=== PATIENT | female | born 1965 | race African-American/Black ===

== ENCOUNTER 2016-12-20 15:28 | Emergency (ER) | payer BC, OTHER ==
[2016-12-20] MEDS ORDERED: KETOROLAC 30 MG/ML 1 ML VIAL IVP STA (16:16)
[2016-12-20] MEDS ORDERED: SODIUM CHLORIDE 0.9% 500 ML IV STA (16:16)
[2016-12-20] MEDS ORDERED: SODIUM CHLORIDE 0.9% 1,000 ML IV STA (16:16)
[2016-12-20] MEDS ORDERED: KETOROLAC 30 MG/ML 1 ML VIAL IM STA (16:38)
--- NOTE | 2016-12-20 16:53 | ED ---
Abdominal Pain HPI - General Chief Complaint: Abdominal Pain Stated Complaint: Abd.pain Time Seen by Provider: 12/20/16 16:01 Source: patient Mode of arrival: ambulatory Limitations: no limitations - History of Present Illness Initial Comments: This 51-year-old Afro[place] female presents with a complaint of some abdominal pain. She states that it is in her right lateral abdomen as well as in her suprapubic region. She states that she's had this for approximately 6 weeks. She was seen in the emergency department approximately 2 weeks ago and diagnosed with a right proximal 7 mm ureteral stone. She was prescribed some pain medications as well as some Flomax. She states that she never took the Flomax but did take the pain medications with some relief. She states that the pain has been persistent. She further relates that she had a hysterectomy this past summer and has had some intermittent suprapubic pain ever since. She does relate occasional hematuria and complains of some pain in her suprapubic region when she urinates but no definite dysuria or frequency. She denies any fevers or chills. She also was diagnosed with some gallstones on last visit. She has not followed up with the urologist as of yet. She also complains of a slight pruritic rash to her chest. She denies any other complaints or modifying factors. - Related Data Home Medications Medication Instructions Recorded Confirmed Atenolol/Chlorthalidone 1 tab PO DAILY 12/05/16 12/20/16 [Atenolol-Chlorthalidone 50-25] Ibuprofen [Motrin] 800 mg PO Q8H PRN 12/05/16 12/20/16 Previous Rx's Medication Instructions Recorded HYDROcodone/APAP 5-325MG [[place] 1 tab PO Q6HR PRN #30 tab 12/05/16 5-325] Ondansetron Odt [Zofran ODT] 4 mg PO Q8HR PRN #30 tab 12/05/16 Ciprofloxacin HCl [Cipro] 500 mg PO Q12HR #20 tablet 12/20/16 traMADol HCl [Ultram] 50 - 100 mg PO Q6H PRN #15 tab 12/20/16 Allergies Allergy/AdvReac Type Severity Reaction Status Date / Time No Known Allergies Allergy Verified 12/20/16 16:21 Review of Systems ROS Statement: Those systems with pertinent positive or pertinent negative responses have been documented in the HPI. ROS Other: All systems not noted in ROS Statement are negative. Past Medical History Past Medical History: No Reported History History of Any Multi-Drug Resistant Organisms: None Reported Past Surgical History: Hysterectomy Additional Past Surgical History / Comment(s): neck tumor removal Past Psychological History: No Psychological Hx Reported Smoking Status: Never smoker Past Alcohol Use History: None Reported Past Drug Use History: None Reported General Exam - General Exam Comments Initial Comments: GENERAL: The patient is well nourished and well hydrated. VITAL SIGNS: Heart rate, blood pressure, respiratory rate reviewed as recorded in nurse's notes. EYES: Pupils are round and reactive. Extraocular movements are intact. No conjunctival / lid redness or swelling. ENT: No external evidence of injury, swelling, or ecchymosis. Airway is patent. Throat is clear. NECK: Nontender. No swelling or evidence of injury. No subcutaneous emphysema. Trachea is midline. No thyroid mass. HEART: Regular rate and rhythm. Good peripheral pulses. LUNGS/CHEST: Breath sounds clear and equal bilaterally. No rales, rhonchi, or wheezes. No ecchymosis, subcutaneous emphysema, or tenderness. ABDOMEN: there is some tenderness present to the suprapubic region minimally. There is some mild right lateral abdominal tenderness as well. No palpable masses or organomegaly. No peritoneal signs. No abdominal wall swelling or ecchymosis. EXTREMITIES: No extremity tenderness. Normal muscle tone and function. No thoracolumbar tenderness. NEUROLOGIC: Sensation is grossly intact. Cranial nerve exam reveals face is symmetrical, tongue is midline, speech is clear. SKIN: No abrasions or ecchymosis is noted. No induration or masses noted. there is a slightly raised mildly pruritic rash is not erythematous on her chest. PSYCHIATRIC: Alert and oriented. Appropriate behavior and judgment. Limitations: no limitations Course Vital Signs 12/20/16 12/20/16 15:31 17:30 Temperature 98.5 F Pulse Rate 80 75 Respiratory 20 16 Rate Blood Pressure 134/76 157/89 O2 Sat by Pulse 98 98 Oximetry Medical Decision Making - Medical Decision Making the patient was seen and examined. All diagnostics were reviewed. Old records were reviewed as well. Old records indicate that there is a partially obstructing 7 mm stone present in the ureteropelvic junction. The current computed tomography scan shows that the 7 mm stone is in the renal pelvis and is nonobstructing. Therefore, is felt as though her pain is less likely related to the renal stone. The computed tomography scan also shows evidence of mmultiple gallstones. Her pain, however does not seem consistent with gallbladder type pain is is not in the right upper quadrant. Possibility of a radiating pain related to her gallbladder is possible. Her urinalysis shows some hematuria as well as some slight bacteria and white blood cells. The possibility urinary tract infection certainly is possible. It is felt as though she would benefit from follow-up with surgery as well as urology and referrals will be given. She will be covered for possible urinary tract infection and a culture will be done as well. She is in no distress on recheck. She did receive a Toradol IM injection. She is requesting to take some pills to resolve her gallbladder stones and she is informed that are not aware of any pills that work in this regard. In addition, her suprapubic pain may be related to post surgical pain related to her hysterectomy and she is informed to follow up with her [employer] doctor in this regard. - Lab Data Result diagrams: 12/20/16 16:41 12/20/16 16:41 Lab Results 12/20/16 12/20/16 12/20/16 Range/Units 16:41 16:41 16:41 WBC 4.9 (3.8-10.6) k/uL RBC 4.65 (3.80-5.40) m/uL Hgb 11.5 (11.4-16.0) gm/dL Hct 38.3 (34.0-46.0) % MCV 82.2 (80.0-100.0) fL MCH 24.7 L (25.0-35.0) pg MCHC 30.0 L (31.0-37.0) g/dL RDW 17.0 H (11.5-15.5) % Plt Count 311 (150-450) k/uL Neutrophils % 47 % Lymphocytes % 42 % Monocytes % 6 % Eosinophils % 3 % Basophils % 0 % Neutrophils # 2.3 (1.3-7.7) k/uL Lymphocytes # 2.1 (1.0-4.8) k/uL Monocytes # 0.3 (0-1.0) k/uL Eosinophils # 0.2 (0-0.7) k/uL Basophils # 0.0 (0-0.2) k/uL Hypochromasia Marked Anisocytosis Slight Sodium 140 (137-145) mmol/L Potassium 4.2 (3.5-5.1) mmol/L Chloride 105 (98-107) mmol/L Carbon Dioxide 25 (22-30) mmol/L Anion Gap 10 mmol/L BUN 17 (7-17) mg/dL Creatinine 0.89 (0.52-1.04) mg/dL Est GFR (MDRD) Af Amer >60 (>60 ml/min/1.73 sqM) Est GFR (MDRD) Non-Af >60 (>60 ml/min/1.73 sqM) Glucose 91 (74-99) mg/dL Calcium 9.7 (8.4-10.2) mg/dL Total Bilirubin 0.4 (0.2-1.3) mg/dL AST 20 (14-36) U/L ALT 36 (9-52) U/L Alkaline Phosphatase 54 (38-126) U/L Total Protein 7.3 (6.3-8.2) g/dL Albumin 3.8 (3.5-5.0) g/dL Amylase 44 (30-110) U/L Lipase 102 (23-300) U/L Urine Color Yellow Urine Appearance Cloudy H (Clear) Urine pH 6.0 (5.0-8.0) Ur Specific [place] 1.031 (1.001-1.035) Urine Protein 2+ H (Negative) Urine Glucose (UA) Negative (Negative) Urine Ketones Negative (Negative) Urine Blood Large H (Negative) Urine Nitrite Negative (Negative) Urine Bilirubin Negative (Negative) Urine Urobilinogen 2.0 (<2.0) mg/dL Ur Leukocyte Esterase Small H (Negative) Urine RBC >182 H (0-5) /hpf Urine WBC 11 H (0-5) /hpf Ur Squamous Epith Cells 4 (0-4) /hpf Urine Bacteria Rare H (None) /hpf Urine Mucus Few H (None) /hpf Disposition Clinical Impression: Gallstones, Abdominal pain, Hematuria, UTI (urinary tract infection), Right kidney stone Disposition: HOME SELF-CARE Condition: Good Instructions: Abdominal Pain (ED), Gallstones (ED), Hematuria (ED), Urinary Tract Infection in Women (ED), Kidney Stones (ED) Prescriptions: Ciprofloxacin HCl [Cipro] 500 mg PO Q12HR #20 tablet traMADol HCl [Ultram] 50 - 100 mg PO Q6H PRN #15 tab PRN Reason: Pain Referrals: None,Stated [Primary Care Provider] - 1-2 days Garfield Hunter MD [STAFF PHYSICIAN] - 12/23/16 Cm Farrar DO [Doctor of Osteopathic Medicine] - 12/23/16 Time of Disposition: 18:10
[2016-12-20 17:00] LABS: Anisocytosis Slight; Basophils % (A) 0 %; CH 24.4; CHCM 29.8; Eosinophils # (A) 0.2 k/uL (0-0.7); Eosinophils % (A) 3 %; HCT 38.3 % (34.0-46.0); HDW 2.48; HGB 11.5 gm/dL (11.4-16.0); Hypochromasia Marked; Luc # (Auto) 0.08; Luc % (Auto) 2; Lymphocytes # (A) 2.1 k/uL (1.0-4.8); Lymphocytes % (A) 42 %; MCH 24.7 pg (25.0-35.0); MCV 82.2 fL (80.0-100.0); Mean Platelet Volume 8.2; Monocytes # (A) 0.3 k/uL (0-1.0); Monocytes % (A) 6 %; Neutrophils # (A) 2.3 k/uL (1.3-7.7); Neutrophils % (A) 47 %; RBC 4.65 m/uL (3.80-5.40); WBC 4.9 k/uL (3.8-10.6); WBC (Perox) 5.07
[2016-12-20 17:09] LABS: Appearance,Urine Cloudy (Clear); Bacteria,Urine Rare /hpf; Bilirubin,Urine Negative (Negative); Glucose,Urine (UA) Negative (Negative); Ketones,Urine Negative (Negative); Leukocyte Esterase,Urine Small (Negative); Mucus,Urine Few /hpf; Nitrite,Urine Negative (Negative); Particle Count 6533; Protein,Urine 2+ (Negative); RBC,Urine >182 /hpf (0-5); Specific Gravity,Urine 1.031 (1.001-1.035); Squamous Epithelial Cell,Urine 4 /hpf (0-4); UA Billing (MACRO vs. MICRO) MICRO; WBC,Urine 11 /hpf (0-5)
[2016-12-20 17:10] LABS: ALT 36 U/L (9-52); AST 20 U/L (14-36); Alkaline Phosphatase 54 U/L (38-126); Amylase 44 U/L (30-110); Anion Gap 10 mmol/L; Blood Urea Nitrogen 17 mg/dL (7-17); Calcium 9.7 mg/dL (8.4-10.2); Carbon Dioxide 25 mmol/L (22-30); Chloride 105 mmol/L (98-107); Glucose 91 mg/dL (74-99); Non-African American GFR(MDRD) >60 (>60 ml/min/1.73 sqM); Potassium 4.2 mmol/L (3.5-5.1); Sodium 140 mmol/L (137-145); Total Bilirubin 0.4 mg/dL (0.2-1.3); Total Protein 7.3 g/dL (6.3-8.2)
--- NOTE | 2016-12-20 17:32 | CT ---
EXAMINATION TYPE: CT abdomen pelvis wo con DATE OF EXAM: 12/20/2016 COMPARISON: 12/05/2016 HISTORY: Right side abdominal pain. Hx of kidney stones CT DLP: 1211.7 mGycm Automated exposure control for dose reduction was used. TECHNIQUE: Helical acquisition of images was performed from the lung bases through the pelvis. FINDINGS: Lung bases are clear. There is no pleural effusion. Heart size is normal. Liver shows no focal defect. There are large rounded calcifications in the gallbladder. Spleen appear s normal. There is no pancreatic mass. Bile ducts are not dilated. There is no adrenal mass. There are calcifications in the right kidney and the largest measures 7 mm at the right renal pelvis. I see no definite hydronephrosis. The right ureter is not dilated. Renal c ortex appears normal. There is no atrophy. There is no retroperitoneal adenopathy. There is no ascites. I see no intestinal wall thickening. There are no dilated loops. Appendix appear s normal. There are spondylotic changes in the lumbar spine with narrowing at L5-S1 disc space. I see no focal bone destruction. IMPRESSION: LARGE CALCIFIED GALLSTONES. NONOBSTRUCTING RIGHT RENAL CALCULI. NO EVIDENCE OF RENAL MASS OR ATROPHY. NORMAL APPENDIX. NO SIGNIFICANT CHANGE COMPARED TO OLD EXAM.
[2016-12-20 17:45] VITALS: RESP 16
--- NOTE | 2016-12-20 18:16 | ED ---
Medical Decision Making - Lab Data Result diagrams: 12/20/16 16:41 12/20/16 16:41 Lab Results 12/20/16 12/20/16 12/20/16 Range/Units 16:41 16:41 16:41 WBC 4.9 (3.8-10.6) k/uL RBC 4.65 (3.80-5.40) m/uL Hgb 11.5 (11.4-16.0) gm/dL Hct 38.3 (34.0-46.0) % MCV 82.2 (80.0-100.0) fL MCH 24.7 L (25.0-35.0) pg MCHC 30.0 L (31.0-37.0) g/dL RDW 17.0 H (11.5-15.5) % Plt Count 311 (150-450) k/uL Neutrophils % 47 % Lymphocytes % 42 % Monocytes % 6 % Eosinophils % 3 % Basophils % 0 % Neutrophils # 2.3 (1.3-7.7) k/uL Lymphocytes # 2.1 (1.0-4.8) k/uL Monocytes # 0.3 (0-1.0) k/uL Eosinophils # 0.2 (0-0.7) k/uL Basophils # 0.0 (0-0.2) k/uL Hypochromasia Marked Anisocytosis Slight Sodium 140 (137-145) mmol/L Potassium 4.2 (3.5-5.1) mmol/L Chloride 105 (98-107) mmol/L Carbon Dioxide 25 (22-30) mmol/L Anion Gap 10 mmol/L BUN 17 (7-17) mg/dL Creatinine 0.89 (0.52-1.04) mg/dL Est GFR (MDRD) Af Amer >60 (>60 ml/min/1.73 sqM) Est GFR (MDRD) Non-Af >60 (>60 ml/min/1.73 sqM) Glucose 91 (74-99) mg/dL Calcium 9.7 (8.4-10.2) mg/dL Total Bilirubin 0.4 (0.2-1.3) mg/dL AST 20 (14-36) U/L ALT 36 (9-52) U/L Alkaline Phosphatase 54 (38-126) U/L Total Protein 7.3 (6.3-8.2) g/dL Albumin 3.8 (3.5-5.0) g/dL Amylase 44 (30-110) U/L Lipase 102 (23-300) U/L Urine Color Yellow Urine Appearance Cloudy H (Clear) Urine pH 6.0 (5.0-8.0) Ur Specific [place] 1.031 (1.001-1.035) Urine Protein 2+ H (Negative) Urine Glucose (UA) Negative (Negative) Urine Ketones Negative (Negative) Urine Blood Large H (Negative) Urine Nitrite Negative (Negative) Urine Bilirubin Negative (Negative) Urine Urobilinogen 2.0 (<2.0) mg/dL Ur Leukocyte Esterase Small H (Negative) Urine RBC >182 H (0-5) /hpf Urine WBC 11 H (0-5) /hpf Ur Squamous Epith Cells 4 (0-4) /hpf Urine Bacteria Rare H (None) /hpf Urine Mucus Few H (None) /hpf Disposition Clinical Impression: Gallstones, Abdominal pain, Hematuria, UTI (urinary tract infection), Right kidney stone, Rash Disposition: HOME SELF-CARE Condition: Good Instructions: Gallstones (ED), Kidney Stones (ED), Urinary Tract Infection in Women (ED), Hematuria (ED), Abdominal Pain (ED) Prescriptions: Ciprofloxacin HCl [Cipro] 500 mg PO Q12HR #20 tablet Hydrocortisone Cream [Hydrocortisone 1% Cream] 1 applic TOPICAL BID #30 gm traMADol HCl [Ultram] 50 - 100 mg PO Q6H PRN #15 tab PRN Reason: Pain Referrals: Cm Farrar, [Doctor of Osteopathic Medicine] - 12/23/16 None,Stated [Primary Care Provider] - 1-2 days Garfield Hunter MD [STAFF PHYSICIAN] - 12/23/16
[2016-12-20 18:41] VITALS: BP 163/90; PULSE 78; TEMP 98
== END 2016-12-20 18:27 | disposition home or self-care (01) ==
LOC: EC 15:28
DX: K80.80 Other cholelithiasis without obstruction (principal); N39.0 Urinary tract infection, site not specified; N20.0 Calculus of kidney; R21 Rash and other nonspecific skin eruption; Z79.899 Other long term (current) drug therapy; Z90.710 Acquired absence of both cervix and uterus
CPT/HCPCS: 36415; 80053; 82150; 83690; 85025; 81001; 74176; 99284; 96372; J1885

== ENCOUNTER → 2017-10-13 | Outpatient (CLI) | payer OTHER ==
--- NOTE | 2017-10-13 12:32 | XR ---
EXAMINATION TYPE: XR knee complete LT DATE OF EXAM: 10/13/2017 CLINICAL HISTORY: Contusion injury with pain TECHNIQUE: Three views of the left knee are obtained. COMPARISON: None. FINDINGS: There is no acute fracture/dislocation evident in left knee. Mild tricompartment joint spa ce loss is seen. No significant spurring is present. The overlying soft tissue appears unremarkable. IMPRESSION: There is no acute fracture or dislocation in the left knee.
== END | disposition home or self-care (01) ==
LOC: RADXRMAIN 12:10
PROVIDERS: ATTEND Emergency Medicine
DX: S80.02XA Contusion of left knee, initial encounter (principal)

== ENCOUNTER → 2017-11-08 | Outpatient (CLI) | payer SELFPAY ==
--- NOTE | 2017-11-08 10:57 | US ---
EXAMINATION TYPE: US venous doppler duplex LE LT DATE OF EXAM: 11/08/2017 10:35 AM COMPARISON: NONE CLINICAL HISTORY: 52-year-old female [id number] HX CONTUSION LT KNEE. Injury left knee in [place] in. SIDE PERFORMED: Left TECHNIQUE: The lower extremity deep venous system is examined utilizing real time linear array sonog maggie with graded compression, doppler sonography and color-flow sonography. FINDINGS: VESSELS IMAGED: External Iliac Vein (EIV) Common Femoral Vein Deep Femoral Vein Greater Saphenous Vein * Femoral Vein Popliteal Vein Small Saphenous Vein * Proximal Calf Veins (* superficial vessels) Left Leg: Negative for DVT IMPRESSION: No evidence for DVT within the left lower extremity imaged from the groin to the upper calf.
== END | disposition home or self-care (01) ==
LOC: RADUSWWP 09:58
PROVIDERS: ATTEND Emergency Medicine
DX: S80.02XD Contusion of left knee, subsequent encounter (principal)

== ENCOUNTER → 2019-04-16 | Outpatient (CLI) | payer OTHER ==
--- NOTE | 2019-04-16 19:14 | MR ---
EXAMINATION TYPE: MR knee LT wo con DATE OF EXAM: 04/16/2019 COMPARISON: Plain film 10/13/2017 HISTORY: Chondromalacia, left knee pain, iliotibial band syndrome TECHNIQUE: Multiplanar, multisequence imaging of the left knee is performed without IV contrast. FINDINGS: MEDIAL MENISCUS: Contour abnormality present at the inferior aspect of the medial meniscus, coronal i mage #21 and 20, meniscus appears diminutive. At the posterior aspect of the meniscus laterally there is a T2 bright, T1 isointense focus measuring approximately 1.2 cm at the level of the root anchor, mild contour abnormality is present at the superior margin posteriorly of the posterior horn of the m edial meniscus sagittal image 20, there may be associated meniscal cyst or ganglion cyst. LATERAL MENISCUS: Coronal image #18 shows a linear increased focus at the level of the meniscus body which likely extends to the undersurface, not identified with certainty on the sagittal images. CRUCIATE LIGAMENTS: The anterior and posterior cruciate ligaments are intact and unremarkable. COLLATERAL LIGAMENTS: The medial collateral ligament and lateral collateral ligament complex are inta ct and unremarkable. EXTENSOR MECHANISM: Visualized quadriceps and patellar tendons are intact. EFFUSION: Small suprapatellar joint effusion POPLITEAL CYST: No popliteal/cuello cyst. 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 OTHER: Minimal marginal spurring medial compartment as on plain film. There is a focus of artifact s een on coronal image #10, sagittal image #20 of the proton density data sets. IMPRESSION: Findings consistent with tear of the lateral meniscus as described, possible ganglion cyst or menisca l cyst at the posterior horn of the medial meniscus as described. Focus of artifact is indeterminate, small metallic foreign body may be present, consider correlation with more recent plain film. Mild o steoarthritis.
--- NOTE | 2019-04-17 00:32 | MR ---
EXAMINATION TYPE: MR hip LT wo con DATE OF EXAM: 04/16/2019 COMPARISON: None HISTORY: Left knee and hip pain, Internal Derrangement, Iliotibial band synddrome, trochanteric bursi tis, condromalacia Multiplanar multiecho imaging of the pelvis and left hip was performed without contrast. Pelvic ring appears intact. There is no evidence of a pelvic mass. There is no free fluid in the pelv is. The proximal femurs have fairly normal signal pattern. There is no edema. There is no evidence of a fracture. Hip joint spaces are fairly well-maintained. There is no sign of avascular necrosis. The re is no evidence of bone edema. There is no sign of any significant hip joint effusion. There is no sign of soft tissue mass. IMPRESSION: Normal MR scan of the left hip.
== END | disposition home or self-care (01) ==
LOC: RADMRIMAIN 13:15
PROVIDERS: ATTEND Orthopaedic Surgery
DX: M17.12 Unilateral primary osteoarthritis, left knee (principal); M25.552 Pain in left hip; S83.207A Unspecified tear of unspecified meniscus, current injury, left knee, initial encounter